=== PATIENT | male | born 1975 | race Caucasian/White ===

== ENCOUNTER → 2017-08-09 | Outpatient (CLI) | payer OTHER ==
[2017-08-09 11:20] LABS: EOS # 0.1 (0.04-0.40); EOS % 1.3 % (0.0-4.0); HEMATOCRIT 49.2 % (42.0-52.0); LYMPH# 2.4 (1.50-4.00); MEAN CELL VOLUME 93 fl (78-100); MEAN CORPUSCULAR HEMOGLOBIN 32 pg (27-31); MEAN CORPUSCULAR HGB CONC 35 g/dL (33-37); MEAN PLATELET VOLUME 9.4 fl (7.4-10.4); MONO # 0.7 (0.20-0.80); NEU # 2.8 (1.40-6.50); PLATELET COUNT 185 K/mm3 (130-400); RED BLOOD COUNT 5.32 M/mm3 (4.20-5.60); RED CELL DISTRIBUTION WIDTH 12.4 % (11.5-14.5)
[2017-08-09 11:26] LABS: ALBUMIN 4.4 g/dL (3.5-5.0); BUN/CREATININE RATIO 19.3 (6.0-26.0); CALCIUM 9.6 mg/dL (8.4-10.2); POTASSIUM 4.2 mmol/L (3.6-5.0); TOTAL BILIRUBIN 1.2 mg/dL (0.2-1.3); TOTAL PROTEIN 7.6 g/dL (6.3-8.2)
== END ==
LOC: RAD 10:55
PROVIDERS: Nurse Practitioner Family
DX: R10.13 Epigastric pain (principal); R19.7 Diarrhea, unspecified

== ENCOUNTER → 2021-11-13 | Outpatient (CLI) | payer OTHER ==
[2021-11-13 11:21] LABS: BASO # 0.03 K/mm3 (0.02-0.10); EOS % 3.7 % (0.0-4.0); HEMATOCRIT 48.1 % (42.0-52.0); HEMOGLOBIN 16.6 g/dL (13.5-18.0); LYMPH# 3.23 K/mm3 (1.50-4.00); MEAN CELL VOLUME 93 fl (78-100); MEAN CORPUSCULAR HEMOGLOBIN 32 pg (27-31); MEAN CORPUSCULAR HGB CONC 35 g/dL (33-37); MEAN PLATELET VOLUME 9.7 fl (7.4-10.4); MONO # 0.39 K/mm3 (0.20-0.80); PLATELET COUNT 178 K/mm3 (130-400); RED BLOOD COUNT 5.18 M/mm3 (4.20-5.60); RED CELL DISTRIBUTION WIDTH 11.8 % (11.5-14.5); WHITE BLOOD COUNT 5.4 K/mm3 (4.8-10.8)
[2021-11-13 11:27] LABS: POTASSIUM 4.6 mmol/L (3.5-5.1)
[2021-11-13 11:28] LABS: ALBUMIN 4.4 g/dL (3.5-5.0)
[2021-11-13 11:29] LABS: CALCIUM 9.4 mg/dL (8.3-10.5)
[2021-11-13 11:30] LABS: TOTAL PROTEIN 7.3 g/dL (6.4-8.3)
== END ==
LOC: LAB 08:59
PROVIDERS: Internal Medicine
DX: Z00.00 Encounter for general adult medical examination without abnormal findings (principal); Z12.5 Encounter for screening for malignant neoplasm of prostate

== ENCOUNTER → 2023-10-21 | Outpatient (CLI) | payer BC ==
[2023-10-21 09:42] LABS: ALBUMIN 4.4 g/dL (3.5-5.0)
[2023-10-21 09:44] LABS: TOTAL PROTEIN 6.9 g/dL (6.4-8.3)
[2023-10-21 09:46] LABS: TOTAL BILIRUBIN 0.86 mg/dL (0.2-1.2)
== END ==
LOC: LAB 08:45
PROVIDERS: Internal Medicine
DX: E11.9 Type 2 diabetes mellitus without complications (principal)

== ENCOUNTER 2024-03-16 07:15 | Emergency (ER) | payer BC ==
[~2024-03-16] VITALS: Ht 182.9 cm; Wt 95.5 kg
[2024-03-16 07:41] LABS: BASO # 0.02 K/mm3 (0.02-0.10); EOS % 1.4 % (0.0-4.0); HEMOGLOBIN 16.2 g/dL (13.5-18.0); LYMPH# 3.93 K/mm3 (1.50-4.00); MEAN CELL VOLUME 94 fl (78-100); MEAN CORPUSCULAR HEMOGLOBIN 32 pg (27-31); MEAN CORPUSCULAR HGB CONC 35 g/dL (33-37); MEAN PLATELET VOLUME 9.1 fl (7.4-10.4); MONO # 0.37 K/mm3 (0.20-0.80); NEU # 2.65 K/mm3 (1.40-6.50); PLATELET COUNT 178 K/mm3 (130-400); RED BLOOD COUNT 5.01 M/mm3 (4.20-5.60); RED CELL DISTRIBUTION WIDTH 11.7 % (11.5-14.5); WHITE BLOOD COUNT 7.1 K/mm3 (4.8-10.8)
[2024-03-16] MEDS ORDERED: fentaNYL 100 MCG/2 ML VIAL IV ONE (07:45)
[2024-03-16] MEDS ORDERED: Ketorolac 30 MG/ML VIAL IV ONE (07:45)
[2024-03-16 07:49] LABS: ALBUMIN 4.4 g/dL (3.5-5.0)
[2024-03-16] MEDS ORDERED: METFORMIN HYD1000 MG PO (07:49)
[2024-03-16 07:50] LABS: CALCIUM 9.3 mg/dL (8.3-10.5)
[2024-03-16 07:52] LABS: TOTAL PROTEIN 7.2 g/dL (6.4-8.3)
[2024-03-16 07:53] LABS: TOTAL BILIRUBIN 0.8 mg/dL (0.2-1.2)
[2024-03-16] MEDS ORDERED: NS 1,000 ML IV SCH (08:30)
[2024-03-16 09:31] LABS: URINE APPEARANCE CLEAR (CLEAR); URINE BILIRUBIN NEGATIVE (NEGATIVE); URINE BLOOD 3+ (NEGATIVE); URINE COLOR YELLOW (YELLOW); URINE GLUCOSE 2+ (NEGATIVE); URINE KETONE 3+ (NEGATIVE); URINE LEUKOCYTE ESTERASE NEGATIVE (NEGATIVE); URINE NITRATE NEGATIVE (NEGATIVE); URINE PROTEIN(semi-quant) NEGATIVE (NEGATIVE); URINE WBC 0-1 /hpf (0-3)
[2024-03-16 12:00] VITALS: BP 120/90
== END 2024-03-16 12:06 | disposition home or self-care (01) ==
LOC: ED 07:15
PROVIDERS: Family Medicine
DX: N20.1 Calculus of ureter (principal); E11.9 Type 2 diabetes mellitus without complications; Z79.84 Long term (current) use of oral hypoglycemic drugs
CPT/HCPCS: J1885; J3010; J7030

== ENCOUNTER → 2024-12-18 | Outpatient (CLI) | payer BC ==
[~2024-12-18] MED LIST: METFORMIN HYD1000 MG PO
== END ==
LOC: LAB 16:26
DX: Z00.00 Encounter for general adult medical examination without abnormal findings (principal); Z12.5 Encounter for screening for malignant neoplasm of prostate; Z12.11 Encounter for screening for malignant neoplasm of colon; K90.9 Intestinal malabsorption, unspecified; E78.2 Mixed hyperlipidemia; E11.9 Type 2 diabetes mellitus without complications